=== PATIENT | female | born 1970 | race American Indian/Alaskan Native ===

== ENCOUNTER 2017-08-23 15:17 | Inpatient (IN) | payer OTHER ==
[2017-08-23 20:52] LABS: Bacteria,Urine 1+ /HPF (Negative); Bilirubin,Urine NEG (Negative); Blood,Urine NEG (Negative); Color,Urine Yellow (Yellow); Mucus,Urine FEW /HPF; Nitrite,Urine NEG (Negative); Protein,Urine <15 mg/dL mg/dL (Negative); Urobilinogen,Urine < 2.0 mg/dL (<2.0)
[2017-08-23 21:01] LABS: Basophils # (Auto) 0.1 K/mm3 (0.0-0.1); Basophils % (Auto) 1.3 % (0.0-1.8); Eosinophils # (Auto) 0.2 K/mm3 (0.0-0.4); Eosinophils % (Auto) 1.9 % (0.0-4.3); Lymphocytes # (Auto) 1.7 K/mm3 (1.2-5.4); Lymphocytes % (Auto) 19.2 % (13.4-35.0); Mean Corpuscular HGB Conc 28 % (30-34); Monocytes # (Auto) 0.9 K/mm3 (0.0-0.8); Monocytes % (Auto) 10.2 % (0.0-7.3); Platelet Count 167 K/mm3 (140-440); Red Blood Count 3.97 M/mm3 (3.65-5.03)
[2017-08-23 21:13] LABS: Hematocrit 22.9 % (30.3-42.9); Hemoglobin 6.4 gm/dl (10.1-14.3); Mean Corpuscular Volume 58 fl (79-97)
[2017-08-23 21:14] LABS: Mean Corpuscular Hemoglobin 16 pg (28-32); Red Cell Distribution Width 21.4 % (13.2-15.2)
[2017-08-23 21:24] LABS: Alanine Aminotransferase 8 units/L (7-56); Albumin 3.8 g/dL (3.9-5); BUN/Creatinine Ratio 18; Blood Urea Nitrogen 7 mg/dL (7-17); Calcium 8.8 mg/dL (8.4-10.2); Hemolysis Index 1; Lipase 27 units/L (13-60)
[2017-08-24] MEDS ORDERED: NACL 0.9% 1000 ML 1,000 ML IV ONE (00:02)
[2017-08-24] MEDS ORDERED: MORPHINE IV ONE (00:02)
[2017-08-24] MEDS ORDERED: ZOFRAN IV ONE (00:02)
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
--- NOTE | 2017-08-24 01:49 | Cat Scan Report ---
FINAL REPORT EXAM: CT ABDOMEN PELVIS W CON HISTORY: rlq pain COMPARISON: None available. TECHNIQUE: Contiguous axial images were obtained. Additional sagittal and coronal reformatted images were obtained. Administration of IV contrast given per institution protocol. Images submitted for interpretation. FINDINGS: Nonspecific linear densities at the lung bases most compatible with mild scarring or atelectasis. At the lateral margin right lower lobe there is a faint subpleural nodular density measuring 5 x 3 millimeters in axial dimension (series 3, image 6). There appears to be some air trapping of the lingula. This may relate to sequelae of prior inflammation. No calcified gallstones or biliary dilatation. Therefore low-attenuation lesions within the right hepatic lobe. Three have peripheral, discontinuous nodular enhancement. The largest is at the central inferior aspect the right hepatic lobe measuring 2.0 x 1.6 centimeters. These 3 lesions are compatible with benign hemangiomas given their pattern of peripheral and nodular discontinuous enhancement. The 4th low-attenuation lesion at the superior margin right hepatic lobe measuring 5 millimeters which is too small to accurately characterize. This may reflect a tiny cyst or additional tiny hemangioma. No suspicious enhancing hepatic mass. Mild focal fatty infiltration of the liver along the falciform ligament. Spleen and pancreas are grossly unremarkable. No adrenal mass. No solid renal lesion hydronephrosis. Aorta and IVC are normal in caliber. Urinary bladder is decompressed. No free fluid lymphadenopathy in the pelvic cavity. Enlarged uterus with multiple fibroids. One of the largest fibroids at the right fundal margin the uterus measuring 4.8 x 4.9 centimeters in axial dimension. There is an exophytic fibroid along the left fundal margin the uterus measuring 6.2 x 4.3 centimeters. Ovaries are grossly unremarkable. The appendix is gas-filled and normal in caliber. There is a linear areas scarring along the right pericolic gutter which appears to be separate from the appendix. This may relate to sequelae of prior inflammation. Moderate stool in the colon. No focal inflammatory changes the bowel. Mild degenerative changes of the lumbar spine. Bony pelvis is grossly intact. Mild degenerative changes of the bilateral hips. IMPRESSION: Enlarged fibroid uterus. Ovaries are grossly unremarkable by CT. Large and small bowel loops normal in caliber. The appendix is normal in caliber. No inflammatory changes of the bowel or appendix by CT. There are 3 right hepatic lobe hemangiomas. There is a 4th subcentimeter low-attenuation lesion right hepatic lobe which may reflect an additional tiny hemangioma or cyst. No other acute findings.
[2017-08-24 05:38] LABS: INR 0.93 (0.87-1.13)
[2017-08-24 05:39] LABS: Partial Thromboplastin Time 30.7 Sec. (24.2-36.6)
[2017-08-24] MEDS ORDERED: MILK OF MAGNESIA PO PRN (05:47)
[2017-08-24] MEDS ORDERED: TYLENOL PO PRN (05:47)
[2017-08-24] MEDS ORDERED: NACL 0.9% 500 ML 500 ML IV ONE (05:47)
[2017-08-24] MEDS ORDERED: ZOFRAN IV PRN (05:47)
[2017-08-24] MEDS ORDERED: DULCOLAX PR PRN (05:47)
--- NOTE | 2017-08-24 05:51 | History and Physical Report ---
History of Present Illness Date of examination: 08/24/17 History of present illness: 46 year old woman with history of menorrhagia comes emergency room complaints of abdominal pain located in the left lower quadrant, started 3-4 days ago, described as dull pain, constant, intensity 6/10, radiating to the right leg, cannot identify exacerbating or relieving factors. Denies nausea vomiting, diarrhea. Admits to fever. States that her menstrual cycle is usually heavy Review Of Systems: Constitutional: no weight loss Ears, eyes, nose, mouth and throat: no nasal congestion, no nasal discharge, no sinus pressure, blurry vision, diplopia Neck: No neck pain or rigidity. Cardiovascular: No chest pain, palpitations Respiratory: No shortness of breath, cough Gastrointestinal: No hematochezia Genitourinary : no dysuria, frequency , hematuria Musculoskeletal: no muscle ache Integumentary: no rash, no pruritis Neurological: no parathesias, focal weakness Endocrine: no cold or heat intolerance, no polyuria or polydipsia Hematologic/Lymphatic: no easy bruising, no easy bleeding, no gland swelling Allergic/Immunologic: no urticaria, no angioedema. PAST MEDICAL HISTORY:none PAST SURGICAL HISTORY:right leg FAMILY HISTORY:hypertension SOCIAL HISTORY:Social alcohol, no tobacco or drugs Medications and Allergies Allergies Allergy/AdvReac Type Severity Reaction Status Date / Time No Known Allergies Allergy Verified 08/24/17 06:01 Exam - Physical Exam Narrative exam: Gen. appearance: Patient lying in bed in no acute distress HEENT: Normocephalic/atraumatic, pupils equal round reactive to light, extra occular movement intact, no scleral icterus, no JVD or thyromegaly or nodule, neck is supple, mucous membrane moist, no erythema or exudate Heart: S1-S2, regular rate and rhythm Lungs: Clear to auscultation bilateral breathing comfortable Abdomen: Positive bowel sounds, nontender, nondistended, no organomegaly Extremities: No edema, cyanosis, clubbing Neuro:: Oriented 3 , cranial nerves II-12 intact, speech, motor intact Skin: No rash, nodules, warm dry - Constitutional Vitals: Temp Pulse Resp BP Pulse Ox 98.3 F 67 13 146/50 99 08/23/17 23:19 08/24/17 04:45 08/24/17 04:45 08/24/17 04:45 08/24/17 04:45 Results - Labs CBC & Chem 7: 08/23/17 20:50 08/23/17 20:50 Labs: Abnormal lab results 08/23/17 08/23/17 08/23/17 Range/Units 15:36 20:50 20:50 Hgb 6.4 L (10.1-14.3) gm/dl Hct 22.9 L (30.3-42.9) % MCV 58 L (79-97) fl MCH 16 L (28-32) pg MCHC 28 L (30-34) % RDW 21.4 H (13.2-15.2) % [place] % (Auto) 10.2 H (0.0-7.3) % [place] # 0.9 H (0.0-0.8) K/mm3 Creatinine 0.4 L (0.7-1.2) mg/dL Glucose 105 H (65-100) mg/dL POC Glucose 128 H (70-105) Albumin 3.8 L (3.9-5) g/dL - Imaging and Cardiology CT scan - abdomen: report reviewed CT scan - pelvis: report reviewed Assessment and Plan Assessment Abdominal pain, NOS Blood loss anemia Plan Admit medicine Transfuse packed red blood cells IV morphine, DVT prophylaxis
--- NOTE | 2017-08-24 11:01 | Progress Note ---
Assessment and Plan Assessment and plan: Patient is a 46-year-old woman a history of anemia and menorrhagia who presents with abdominal pain. Hemoglobin was found to be 6.4 she had negative fecal blood testing. CT abd/pelvis with iv contrast reported as enlarged fibroid uterus, ovaries are grossly unremarkable CT, large and small bowel loops normal caliber common appendix is normal, no inflammatory changes in her bowel or appendix, there are 3 right hepatic lobe hemangiomas, there is a 4th subcentimeter low-attenuation lesion right hepatic lobe which may reflect an additional tiny hemangioma or cyst, no other acute findings. 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 Follow-up on current diagnosis. Overnight uneventful. Patient denies any chest pain, shortness breath, nausea/vomiting or severe headaches. Imaging, nursing note, chart, labs and old chart reviewed. Discussed with patient. Hospitalist Physical - Physical exam Narrative exam: GEN: WDWN, NAD, AWAKE, ALERT, ORIENTATED 3 HEENT: NCAT, EOMI, PERRL, OP Clear NECK: supple, no adenopathy, no thyromegaly, no JVD CVS/HEART: RRR, NORMAL S1S2, NO JVD, pulses present bilaterally CHEST/LUNGS: CTA B, Symmetrical chest expansion, good air entry bilaterally GI/Abdomen: soft, NTND, good bowel sounds, no guarding or rebound /Bladder: no suprapubic tenderness, no CVA or paraspinal tenderness EXT/Skin: no c/c/e, no obvious rash MSK: FROM x 4 Neuro: CN 2-12 grossly intact, no new focal deficits Psych: calm - Constitutional Vitals: Temp Pulse Resp BP Pulse Ox 98.2 F 72 18 128/51 99 08/24/17 09:06 08/24/17 09:06 08/24/17 09:06 08/24/17 09:06 08/24/17 10:00 Results - Labs CBC & Chem 7: 08/23/17 20:50 08/23/17 20:50 Labs: Laboratory Last Values WBC 8.7 K/mm3 (4.5-11.0) 08/23/17 20:50 RBC 3.97 M/mm3 (3.65-5.03) 08/23/17 20:50 Hgb 6.4 gm/dl (10.1-14.3) L 08/23/17 20:50 Hct 22.9 % (30.3-42.9) L 08/23/17 20:50 MCV 58 fl (79-97) L 08/23/17 20:50 MCH 16 pg (28-32) L 08/23/17 20:50 MCHC 28 % (30-34) L 08/23/17 20:50 RDW 21.4 % (13.2-15.2) H 08/23/17 20:50 Plt Count 167 K/mm3 (140-440) 08/23/17 20:50 Lymph % (Auto) 19.2 % (13.4-35.0) 08/23/17 20:50 [place] % (Auto) 10.2 % (0.0-7.3) H 08/23/17 20:50 Eos % (Auto) 1.9 % (0.0-4.3) 08/23/17 20:50 Baso % (Auto) 1.3 % (0.0-1.8) 08/23/17 20:50 Lymph # 1.7 K/mm3 (1.2-5.4) 08/23/17 20:50 [place] # 0.9 K/mm3 (0.0-0.8) H 08/23/17 20:50 Eos # 0.2 K/mm3 (0.0-0.4) 08/23/17 20:50 Baso # 0.1 K/mm3 (0.0-0.1) 08/23/17 20:50 Seg Neutrophils % 67.4 % (40.0-70.0) 08/23/17 20:50 Seg Neutrophils # 5.9 K/mm3 (1.8-7.7) 08/23/17 20:50 PT 12.9 Sec. (12.2-14.9) 08/24/17 04:25 INR 0.93 (0.87-1.13) 08/24/17 04:25 APTT 30.7 Sec. (24.2-36.6) 08/24/17 04:25 Sodium 138 mmol/L (137-145) 08/23/17 20:50 Potassium 3.9 mmol/L (3.6-5.0) 08/23/17 20:50 Chloride 103.1 mmol/L (98-107) 08/23/17 20:50 Carbon Dioxide 24 mmol/L (22-30) 08/23/17 20:50 Anion Gap 15 mmol/L 08/23/17 20:50 BUN 7 mg/dL (7-17) 08/23/17 20:50 Creatinine 0.4 mg/dL (0.7-1.2) L 08/23/17 20:50 Estimated GFR > 60 ml/min 08/23/17 20:50 BUN/Creatinine Ratio 18 % 08/23/17 20:50 Glucose 105 mg/dL (65-100) H 08/23/17 20:50 POC Glucose 128 (70-105) H 08/23/17 15:36 Calcium 8.8 mg/dL (8.4-10.2) 08/23/17 20:50 Total Bilirubin 0.20 mg/dL (0.1-1.2) 08/23/17 20:50 AST 13 units/L (5-40) 08/23/17 20:50 ALT 8 units/L (7-56) 08/23/17 20:50 Alkaline Phosphatase 69 units/L (35-129) 08/23/17 20:50 Total Protein 6.9 g/dL (6.3-8.2) 08/23/17 20:50 Albumin 3.8 g/dL (3.9-5) L 08/23/17 20:50 Albumin/Globulin Ratio 1.2 % 08/23/17 20:50 Lipase 27 units/L (13-60) 08/23/17 20:50 HCG, Qual Negative (Negative) 08/23/17 20:50 Urine Color Yellow (Yellow) 08/23/17 20:00 Urine Turbidity Clear (Clear) 08/23/17 20:00 Urine pH 7.0 (5.0-7.0) 08/23/17 20:00 Ur Specific [place] 1.020 (1.003-1.030) 08/23/17 20:00 Urine Protein <15 mg/dl mg/dL (Negative) 08/23/17 20:00 Urine Glucose (UA) Neg mg/dL (Negative) 08/23/17 20:00 Urine Ketones Neg mg/dL (Negative) 08/23/17 20:00 Urine Blood Neg (Negative) 08/23/17 20:00 Urine Nitrite Neg (Negative) 08/23/17 20:00 Urine Bilirubin Neg (Negative) 08/23/17 20:00 Urine Urobilinogen < 2.0 mg/dL (<2.0) 08/23/17 20:00 Ur Leukocyte Esterase Neg (Negative) 08/23/17 20:00 Urine WBC (Auto) 2.0 /HPF (0.0-6.0) 08/23/17 20:00 Urine RBC (Auto) 2.0 /HPF (0.0-6.0) 08/23/17 20:00 U Epithel Cells (Auto) 3.0 /HPF (0-13.0) 08/23/17 20:00 Urine Bacteria (Auto) 1+ /HPF (Negative) 08/23/17 20:00 Urine Mucus Few /HPF 08/23/17 20:00 Blood Type A POSITIVE 08/24/17 04:25 Antibody Screen Negative 08/24/17 04:25 Crossmatch See Detail 08/24/17 04:25
[2017-08-24] MEDS: MORPHINE IV PRN ×3 (11:40→22:42)
--- NOTE | 2017-08-24 13:19 | Consultation ---
History of Present Illness Consult date: 08/24/17 Requesting physician: HEMANTH NOONAN Reason for consult: menorrhagia, pelvic mass History of present illness: Patient is a 46-year-old black female with a history of anemia and menorrhagia who presents with abdominal pain. Hemoglobin was found to be 6.4 she had negative fecal blood testing. CT abd/pelvis with iv contrast reported as enlarged fibroid uterus, ovaries are grossly unremarkable CT, large and small bowel loops normal caliber common appendix is normal, no inflammatory changes in her bowel or appendix, there are 3 right hepatic lobe hemangiomas, there is a 4th subcentimeter low-attenuation lesion right hepatic lobe which may reflect an additional tiny hemangioma or cyst, no other acute findings. -Acute on chronic blood loss anemia most likely due to uterine fibroids for which I have been consulted. I agree with blood transfusion which is currently in progress. 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 Social history: no significant social history Medications and Allergies Allergies Allergy/AdvReac Type Severity Reaction Status Date / Time No Known Allergies Allergy Verified 08/24/17 06:01 Home Medications Medication Instructions Recorded Confirmed Last Taken Type No Known Home Medications [No 08/24/17 08/24/17 Unknown History Reported Home Medications] Active Meds: Active Medications Acetaminophen (Tylenol) 650 mg PO Q4H PRN PRN Reason: Pain MILD(1-3)/Fever >100.5/BOLIVAR Bisacodyl (Dulcolax) 10 mg [place] QDAY PRN PRN Reason: Constipation unrelieved by MOM Magnesium Hydroxide (Milk Of Magnesia) 30 ml PO Q4H PRN PRN Reason: Constipation Morphine Sulfate (Morphine) 2 mg IV Q4H PRN PRN Reason: Pain, Moderate (4-6) Last Admin: 08/24/17 11:40 Dose: 2 mg Ondansetron HCl (Zofran) 4 mg IV Q8H PRN PRN Reason: N/V unrelieved by Reglan Review of Systems All systems: negative - Vital Signs Vital signs: Vital Signs Temp Pulse Resp BP Pulse Ox 99.6 F 85 16 142/68 100 08/23/17 15:24 08/23/17 15:24 08/23/17 15:24 08/23/17 15:24 08/23/17 15:24 Temp Pulse Resp BP Pulse Ox 98.2 F 72 20 128/51 99 08/24/17 09:06 08/24/17 09:06 08/24/17 11:40 08/24/17 09:06 08/24/17 10:00 Results Result Diagrams: 08/23/17 20:50 08/23/17 20:50 Abnormal lab results 08/23/17 08/23/17 08/23/17 Range/Units 15:36 20:50 20:50 Hgb 6.4 L (10.1-14.3) gm/dl Hct 22.9 L (30.3-42.9) % MCV 58 L (79-97) fl MCH 16 L (28-32) pg MCHC 28 L (30-34) % RDW 21.4 H (13.2-15.2) % [place] % (Auto) 10.2 H (0.0-7.3) % [place] # 0.9 H (0.0-0.8) K/mm3 Creatinine 0.4 L (0.7-1.2) mg/dL Glucose 105 H (65-100) mg/dL POC Glucose 128 H (70-105) Albumin 3.8 L (3.9-5) g/dL Crossmatch 08/24/17 Range/Units 04:25 Hgb (10.1-14.3) gm/dl Hct (30.3-42.9) % MCV (79-97) fl MCH (28-32) pg MCHC (30-34) % RDW (13.2-15.2) % [place] % (Auto) (0.0-7.3) % [place] # (0.0-0.8) K/mm3 Creatinine (0.7-1.2) mg/dL Glucose (65-100) mg/dL POC Glucose (70-105) Albumin (3.9-5) g/dL Crossmatch See Detail All other labs normal. CT scan - pelvis: report reviewed Assessment and Plan - Patient Problems (1) Menorrhagia with irregular cycle Onset Date: 08/24/17 Current Visit: Yes Status: Acute (2) Anemia Onset Date: 08/24/17 Current Visit: Yes Status: Acute Qualifiers: Iron deficiency anemia type: chronic blood loss (3) Fibroid uterus Onset Date: 08/24/17 Current Visit: Yes Status: Acute Qualifiers: Uterine leiomyoma location: intramural and subserous Qualified Code(s): D25.1 - Intramural leiomyoma of uterus; D25.2 - Subserosal leiomyoma of uterus; D25.2 - Subserosal leiomyoma of uterus Plan to address problem: A: Symptomatic uterine fibroids Menorrhagia Symptomatic anemia P: I agree with admission for a blood transfusion Discussed with pt that she will need a Pap and endometrial biopsy on an out patient basis. Thank you for the consultation.
[2017-08-24] MEDS ORDERED: NACL 0.9% 500 ML 500 ML IV NR (16:00)
[2017-08-24 19:36] LABS: % Iron Saturation 3.25 %
[2017-08-25 08:08] LABS: Mean Corpuscular HGB Conc 29 % (30-34); Platelet Count 126 K/mm3 (140-440); Red Blood Count 4.56 M/mm3 (3.65-5.03)
[2017-08-25 08:15] LABS: Hemoglobin 8.5 gm/dl (10.1-14.3); Mean Corpuscular Hemoglobin 19 pg (28-32); Mean Corpuscular Volume 64 fl (79-97); Red Cell Distribution Width 28.4 % (13.2-15.2)
[2017-08-25 08:35] LABS: BUN/Creatinine Ratio 13; Blood Urea Nitrogen 5 mg/dL (7-17); Calcium 8.7 mg/dL (8.4-10.2); Hemolysis Index 0
[2017-08-25 08:59] VITALS: BP 171/65
[2017-08-25 09:26] LABS: Anisocytosis 2+; Dimorphic RBC Yes; Hypochromasia 2+; Total Cells Counted 100
[2017-08-25 09:27] LABS: Platelet Estimate Consistent w Auto; Schistocytes Rare
--- NOTE | 2017-08-25 10:40 | Discharge Summary ---
Providers - Providers Date of Admission: 08/24/17 05:47 Date of discharge: 08/25/17 Attending physician: RITO WREN 08/24/17 10:57 Consult to Physician [CONS] Routine Consulting Provider: DILIP CHI Reason For Exam: Abnormal uterine bleed Place consult to:: DR. Lili CHI Notified:: DR. Arevalo Phone number called:: [phone] Was contact made?: Yes If yes, spoke with:: DR. Arevalo Time called:: 12:54 Comment:: ROBINSON SPOKE WITH DR. Arevalo Primary care physician: [facility] Hospitalization Reason for admission: anemia from Mnorrhagia Condition: Stable Hospital course: Patient is a 46-year-old woman a history of anemia and menorrhagia who presents with abdominal pain. Hemoglobin was found to be 6.4 she had negative fecal blood testing. CT abd/pelvis with iv contrast reported as enlarged fibroid uterus, ovaries are grossly unremarkable CT, large and small bowel loops normal caliber common appendix is normal, no inflammatory changes in her bowel or appendix, there are 3 right hepatic lobe hemangiomas, there is a 4th subcentimeter low-attenuation lesion right hepatic lobe which may reflect an additional tiny hemangioma or cyst, no other acute findings. -Acute on chronic blood loss anemia most likely due to uterine fibroids: Consulted [employer], transfuse 2 units prbc pending -Menorrhagia due to the above Disposition: DC-01 TO HOME OR SELFCARE Core Measure Documentation - Palliative Care Palliative Care/ Comfort Measures: Not Applicable - Core Measures Any of the following diagnoses?: none Exam - Constitutional Vitals: Temp Pulse Resp BP Pulse Ox 98.3 F 88 20 171/65 99 08/25/17 07:44 08/25/17 07:44 08/25/17 07:44 08/25/17 07:44 08/25/17 07:44 General appearance: Present: no acute distress, well-nourished - EENT Eyes: Present: PERRL - Neck Neck: Present: supple, normal ROM - Respiratory Respiratory effort: normal Respiratory: bilateral: CTA - Cardiovascular Heart Sounds: Present: S1 & S2. Absent: rub, click - Extremities Extremities: pulses symmetrical, No edema Peripheral Pulses: within normal limits - Abdominal General gastrointestinal: Present: soft, non-tender, non-distended, normal bowel sounds - Integumentary Integumentary: Present: clear, warm, dry - Musculoskeletal Musculoskeletal: gait normal, strength equal bilaterally - Psychiatric Psychiatric: appropriate mood/affect, intact judgment & insight - Neurologic Neurologic: CNII-XII intact, moves all extremities Plan Diet: regular Follow up with: PRIMARY CARE,MD [Primary Care Provider] - 7 Days Prescriptions: Ferrous Gluconate [Fergon 325 MG tab] 325 mg PO BID #60 tablet Vit C/Ascorbate Calcium,Sodium [Vitamin C 500 mg/15 ml Liquid] 500 mg PO QDAY # 30 tab
== END 2017-08-25 14:20 | disposition home or self-care (01) | DRG 760 ==
LOC: ED 15:17 → 3A 08-24 05:47
PROVIDERS: ADMIT Internal Medicine; ATTEND Family Medicine
PROC: 30233N1 Transfusion of Nonautologous Red Blood Cells into Peripheral Vein, Percutaneous Approach (ICD-10-PCS; principal; 2017-08-24)
DX: D25.9 Leiomyoma of uterus, unspecified (principal); D62 Acute posthemorrhagic anemia; D18.03 Hemangioma of intra-abdominal structures; N92.0 Excessive and frequent menstruation with regular cycle; Z87.891 Personal history of nicotine dependence; Z82.49 Family history of ischemic heart disease and other diseases of the circulatory system
CPT/HCPCS: 36415; 74177; 80048; 80053; 81001; 82271; 82962; 83550; 83690; 84703; 85007; 85025; 85610; 85730; 86850; 86900; 86901; 86920; J2270; J2405; J7030; J7040; P9016; Q9967